=== PATIENT | female | born 1985 | race Caucasian/White ===

== ENCOUNTER 2019-10-01 08:01 | Emergency (ER) | payer BC, SELFPAY ==
--- NOTE | 2019-10-01 08:12 | ED.GENADULT ---
HPI - General Adult General Chief complaint: Upper Respiratory Infection Stated complaint: Cough/Fever/Sore throat Time Seen by Provider: 10/01/19 08:17 Source: patient Mode of arrival: ambulatory Limitations: no limitations History of Present Illness HPI narrative: 34-year-old female patient presents to the [facility] with complaints of cold symptoms for the past 5 days. Patient states she has been feeling very achy overall, fevers, sore throat, runny nose, stuffy nose and a cough. Patient denies getting a flu shot this year. Patient states that her boss was just diagnosed with strep yesterday. Patient states that she has been taking [id number] Tylenol, ibuprofen, TheraFlu and DayQuil and NyQuil for her symptoms. Patient denies any or breast-feeding. Related Data Home Medications Medication Instructions Recorded Confirmed clonazepam 0.5 mg PO DAILY 10/01/19 10/01/19 sertraline 50 mg PO DAILY 10/01/19 10/01/19 Allergies Allergy/AdvReac Type Severity Reaction Status Date / Time No Known Allergies Allergy Verified 10/01/19 08:17 Review of Systems Review of Systems: Narrative: CONSTITUTIONAL: Positive subjective fever, chills, body aches and sweats. EYES: Denies visual changes, redness, or discharge. ENT: Positive rhinorrhea, congestion, sore throat, denies otalgia. CARDIOVASCULAR: Denies chest pain, palpitations, or edema. RESPIRATORY: Positive nonproductive cough, denies dyspnea. GASTROINTESTINAL: Denies abdominal pain, nausea, vomiting, or diarrhea. GENITOURINARY: Denies dysuria or hematuria. SKIN: Denies rash or itching. MUSCULOSKELETAL: Denies back pain, joint pain, or myalgia. NEUROLOGIC: Denies headache, numbness, or weakness. PSYCHIATRIC: Denies anxiety or depression. PMFSH Comments At the time of my signature I agree with nursing past medical history, surgical, social, and family history. There is no relevant family history pertinent to the presenting complaint. Exam Narrative: Exam Narrative: GENERAL: Well-appearing, well-nourished, and in no acute distress. HEAD: Normocephalic, atraumatic. No tenderness noted to frontal maxillary sinuses on palpation. EYES: PERRLA and EOMI. ENT: Nares with erythema and edema noted bilaterally, patent, no rhinorrhea or epistaxis. Mucous membranes moist. Posterior pharynx with no erythema, tonsil enlargement, exudates or lesions present. Bilateral TMs are clear with no erythema or foreign bodies in the canal. NECK: Supple. No lymphadenopathy CHEST: Clear to auscultation. No respiratory distress. HEART: Regular rate and rhythm. No murmur heard. Normal peripheral pulses. ABDOMEN: Soft, nontender, nondistended, normal active bowel sounds. EXTREMITIES: Normal range of motion. No edema. SKIN: Warm, dry, no rash. NEURO: No focal deficits. Alert and oriented x3. Course Reevaluation(s) Reevaluation #1: Notify patient that she is positive today for influenza B. Discussed with her she can continue taking the Tylenol, ibuprofen and [id number] symptomatic relief for her symptoms. Discussed with her that I will take her off of work for the next 2 days since she is still running fevers. Discussed patient she can go back to work when she is fever free for 24 hours. Patient verbalized understanding denies any other questions or concerns at this time. Date: 10/01/19 Time: 08:40 Vital Signs Vital signs: Vital Signs Temperature 37.7 C H 10/01/19 08:14 Pulse Rate 80 10/01/19 08:14 Respiratory Rate 16 10/01/19 08:14 Blood Pressure 97/63 L 10/01/19 08:14 Pulse Oximetry 100 10/01/19 08:14 Temperature 37.7 C H 10/01/19 08:14 Pulse Rate 80 10/01/19 08:14 Respiratory Rate 16 10/01/19 08:14 Blood Pressure 97/63 L 10/01/19 08:14 Pulse Oximetry 100 10/01/19 08:14 Vital signs reviewed. Medical Decision Making Differential Diagnosis Differential Diagnosis: Differential diagnosis: Allergic rhinitis, chronic sinusitis, tonsillitis, acute
[2019-10-01 08:14] VITALS: BP 97/63; PULSE 80; RESP 16; TEMP 37.7; O2SAT 100
== END 2019-10-01 08:44 | disposition home or self-care (01) ==
PROVIDERS: Emergency Provider Nurse Practitioner Family
DX: J10.1 Influenza due to other identified influenza virus with other respiratory manifestations (principal); F41.9 Anxiety disorder, unspecified
CPT/HCPCS: 87081; 87804; 87880; 99213; G0463